=== PATIENT | male | born 1945 | race African-American/Black ===

== ENCOUNTER 2019-09-28 02:23 | Inpatient (IN) | payer OTHER ==
[~2019-09-28] VITALS: Ht 172.7 cm; Wt 45.6 kg
[2019-09-28] MEDS ORDERED: SODIUM CHLORIDE 0.9% 1,000 ML IV ONE (03:48)
[2019-09-28 04:26] LABS: INR 1.5; PROTHROMBIN TIME 15.7 sec (9.6-11.0)
[2019-09-28 04:26] LABS: CLARITY URINE CLEAR (CLEAR); COLOR URINE YELLOW (YELLOW); KETONES URINE NEGATIVE (NEGATIVE); LEUKOCYTE ESTERASE URINE NEGATIVE (NEGATIVE); NITRITE URINE NEGATIVE (NEGATIVE); OCCULT BLOOD URINE NEGATIVE (NEGATIVE); PH URINE 7.5 (4.5-8.0); PROTEIN URINE NEGATIVE (NEGATIVE); SPECIFIC GRAVITY URINE 1.012 (1.005-1.030); UROBILINOGEN URINE >=8.0 E.U./dL (0.2-1.0)
[2019-09-28 04:33] LABS: BASOPHILS % 0.8 % (0.0-2.0); EOSINOPHILS % 1.1 % (0.0-5.0); HEMOGLOBIN. 10.6 g/dL (14.0-18.0); LYMPHOCYTES % 43.8 % (20.0-50.0); MEAN CORPUSCULAR HEMOGLOBIN 27.3 pg (28.0-32.0); MEAN CORPUSCULAR VOLUME 82.1 fL (80.0-94.0); NEUTROPHILS % 41.3 % (40.0-76.0); RED BLOOD CELL COUNT 3.89 mill/uL (4.7-6.1); RED CELL DISTRIBUTION WIDTH 24.6 % (11.6-14.6)
[2019-09-28 04:36] LABS: CHLORIDE 105 mEq/L (98-107)
[2019-09-28 04:40] LABS: ETHANOL BLOOD < 10 mg/dL
[2019-09-28 04:45] LABS: CREATINE KINASE 285 IU/L (39-308)
[2019-09-28 04:47] LABS: METHADONE URINE SCREEN NEGATIVE (NEGATIVE); OPIATES URINE SCREEN NEGATIVE (NEGATIVE)
[2019-09-28 04:48] LABS: *AMPHETAMINES SCREEN URINE NEGATIVE (NEGATIVE); *BARBITURATES SCREEN URINE NEGATIVE (NEGATIVE); *BENZODIAZEPINES SCREEN URINE NEGATIVE (NEGATIVE); *COCAINE SCREEN URINE NEGATIVE (NEGATIVE); CANNABINOID URINE SCREEN NEGATIVE (NEGATIVE); PHENCYCLIDINE URINE SCREEN NEGATIVE (NEGATIVE)
[2019-09-28 05:05] LABS: MEAN PLATELET VOLUME 9.1 fl (7.4-10.4); PLATELET 44 x1000/uL (130-400)
[2019-09-28] MEDS ORDERED: GUAIFENESIN 200MG/10ML SUGAR FREE UDC PO PRN (07:30)
[2019-09-28] MEDS ORDERED: HYDROCODONE/ACETAMINOPHEN 10/325MG TABLET PO PRN (07:30)
[2019-09-28] MEDS ORDERED: DIPHENHYDRAMINE 50MG/ML VIAL IV PRN (07:30)
[2019-09-28] MEDS ORDERED: MAGNESIUM/ALUMINUM HYDROXIDE/SIMETHICONE 30ML UDC PO PRN (07:30)
[2019-09-28] MEDS ORDERED: IPRATROPIUM/ALBUTEROL 0.5-3(2.5)MG/3ML NEB HHN PRN (07:30)
[2019-09-28] MEDS ORDERED: ONDANSETRON HCL 4MG/2ML INJ IV PRN (07:30)
[2019-09-28] MEDS ORDERED: ACETAMINOPHEN 325MG TABLET PO PRN (07:30)
[2019-09-28] MEDS ORDERED: HYDRALAZINE 20MG/ML VIAL IV PRN (07:30)
[2019-09-28] MEDS ORDERED: CLONIDINE 0.1MG TABLET PO PRN (07:30)
[2019-09-28] MEDS ORDERED: DOCUSATE SODIUM 100MG CAPSULE PO PRN (07:30)
[2019-09-28] MEDS ORDERED: LORAZEPAM 2MG/ML CPJ IV PRN (07:30)
[2019-09-28] MEDS ORDERED: MORPHINE SULFATE 2 MG/ML CPJ (NOT FOR IM USE) IV PRN (07:30)
[2019-09-28 09:12] VITALS: BP 118/74
[2019-09-28] MEDS ORDERED: FURO-152 PO (11:24)
[2019-09-28 12:02] VITALS: BP 123/73
[2019-09-28 13:10] LABS: T4 FREE 1.31 ng/dL (0.76-1.46)
[2019-09-28] MEDS: FOLIC ACID 1MG TABLET PO SCH (13:26)
[2019-09-28] MEDS: THIAMINE HCL 100MG TABLET PO SCH (13:26)
[2019-09-28] MEDS: SODIUM CHLORIDE 0.9% INJ 3ML FLUSH IVF SCH ×2 (13:26→21:11)
[2019-09-28] MEDS: MULTIVITAMINS,THER W-MINERALS TABLET PO SCH (13:26)
[2019-09-28 15:10] LABS: FOLIC ACID (FOLATE) SERUM > 20.00 ng/mL (>5.38)
[2019-09-28 15:19] LABS: VITAMIN B12 SERUM 1853 pg/mL (211-911)
[2019-09-28 16:07] VITALS: BP 107/55
[2019-09-28 18:13] LABS: CREATINE KINASE 259 IU/L (39-308)
[2019-09-28 18:14] LABS: CREATINE KINASE MB FRACTION 3.2 ng/mL (0.5-3.6)
[2019-09-28 20:00] VITALS: BP 113/69
[2019-09-28 23:53] LABS: CREATINE KINASE 223 IU/L (39-308)
[2019-09-28 23:54] LABS: CREATINE KINASE MB FRACTION 2.7 ng/mL (0.5-3.6)
[2019-09-29 00:44] VITALS: BP 124/73
[2019-09-29 04:00] VITALS: BP 114/64
[2019-09-29] MEDS: SODIUM CHLORIDE 0.9% INJ 3ML FLUSH IVF SCH ×3 (05:50→21:46)
[2019-09-29 08:02] VITALS: BP 105/67
[2019-09-29] MEDS: THIAMINE HCL 100MG TABLET PO SCH ×2 (09:00→09:33)
[2019-09-29] MEDS: FOLIC ACID 1MG TABLET PO SCH ×2 (09:00→09:33)
[2019-09-29] MEDS: MULTIVITAMINS,THER W-MINERALS TABLET PO SCH ×2 (09:00→09:33)
[2019-09-29] MEDS: DEXT 5%/0.45% NACL 1000ML 1,000 ML IV SCH (12:31)
[2019-09-29 12:38] VITALS: BP 89/60
[2019-09-29 16:10] VITALS: BP 112/65
[2019-09-29 17:39] LABS: BASOPHILS % 0.7 % (0.0-2.0); HEMATOCRIT. 36.3 % (42.0-52.0); HEMOGLOBIN. 11.7 g/dL (14.0-18.0); LYMPHOCYTES % 46.9 % (20.0-50.0); MEAN CORPUSCULAR HEMOGLOBIN 26.5 pg (28.0-32.0); MONOCYTES % 12.3 % (2.0-8.0); NEUTROPHILS % 38.1 % (40.0-76.0); RED BLOOD CELL COUNT 4.42 mill/uL (4.7-6.1); RED CELL DISTRIBUTION WIDTH 24.3 % (11.6-14.6)
[2019-09-29 18:21] LABS: CHLORIDE 105 mEq/L (98-107)
[2019-09-29 18:26] LABS: TOTAL IRON BINDING CAPACITY 431 ug/dL (250-450)
[2019-09-29] MEDS ORDERED: IOHEXOL-300 100 ML BOTTLE ONE (18:44)
[2019-09-29] MEDS: LACTULOSE 20G/30ML UDC PO SCH ×2 (18:52→23:08)
[2019-09-29 20:40] VITALS: BP 112/73
[2019-09-29 22:34] LABS: PLATELET ESTIMATE MARKEDLY DECREASED
[2019-09-29 22:35] LABS: PLATELET 36 x1000/uL (130-400)
[2019-09-30 00:30] VITALS: BP 110/83
[2019-09-30 04:00] VITALS: BP 114/78
[2019-09-30] MEDS: LACTULOSE 20G/30ML UDC PO SCH ×4 (05:16→22:04)
[2019-09-30] MEDS: SODIUM CHLORIDE 0.9% INJ 3ML FLUSH IVF SCH ×3 (05:16→22:11)
[2019-09-30 08:02] VITALS: BP 114/64
[2019-09-30] MEDS: FOLIC ACID 1MG TABLET PO SCH (09:57)
[2019-09-30] MEDS: MULTIVITAMINS,THER W-MINERALS TABLET PO SCH (09:57)
[2019-09-30] MEDS: THIAMINE HCL 100MG TABLET PO SCH (09:58)
[2019-09-30 12:02] VITALS: BP 137/76
[2019-09-30] MEDS ORDERED: LEVOFLOXACIN 500MG PREMIX 100 ML IV SCH (13:00)
[2019-09-30] MEDS: DEXT 5%/0.45% NACL 1000ML 1,000 ML IV SCH (15:02)
[2019-09-30 16:04] VITALS: BP 110/58
[2019-09-30 20:20] VITALS: BP 106/62
[2019-10-01] VITALS (7 sets, daily range): BP systolic 99–106; BP diastolic 44–67
[2019-10-01] MEDS: DEXT 5%/0.45% NACL 1000ML 1,000 ML IV SCH (04:48)
[2019-10-01 05:10] LABS: HIV SCREEN 4G Non Reactive (Non Reactive)
[2019-10-01] MEDS: SODIUM CHLORIDE 0.9% INJ 3ML FLUSH IVF SCH ×2 (05:39→13:07)
[2019-10-01] MEDS: LACTULOSE 20G/30ML UDC PO SCH ×2 (06:02→13:07)
[2019-10-01 07:31] LABS: CHLORIDE 105 mEq/L (98-107)
[2019-10-01 07:48] LABS: HEMATOCRIT. 34.6 % (42.0-52.0); HEMOGLOBIN. 11.4 g/dL (14.0-18.0); MEAN CORPUSCULAR HEMOGLOBIN 26.7 pg (28.0-32.0); MEAN CORPUSCULAR VOLUME 80.9 fL (80.0-94.0); RED BLOOD CELL COUNT 4.28 mill/uL (4.7-6.1)
[2019-10-01] MEDS: MULTIVITAMINS,THER W-MINERALS TABLET PO SCH (09:54)
[2019-10-01] MEDS: FOLIC ACID 1MG TABLET PO SCH (09:54)
[2019-10-01] MEDS: THIAMINE HCL 100MG TABLET PO SCH (09:57)
[2019-10-01] MEDS ORDERED: LEVOFLOXACIN 250MG TABLET PO SCH (16:00)
[2019-10-01 17:15] LABS: MEAN PLATELET VOLUME 9.4 fl (7.4-10.4); PLATELET 54 x1000/uL (130-400)
[2019-10-01 17:17] LABS: PLATELET ESTIMATE MARKEDLY DECREASED
[2019-10-01 22:16] LABS: HEPATITIS B SURFACE ANTIGEN NEGATIVE
[2019-10-02 16:30] LABS: FERRITIN 51 ng/mL (22-322)
[2019-10-02 19:52] LABS: HEPATITIS A AB IGM NEGATIVE (NEGATIVE)
== END 2019-10-01 21:22 | disposition short-term general hospital (02) | DRG 432 ==
LOC: ER 02:58 → 6WST 05:31 → EDBEDREQ 05:34 → ENRESERV 08:29
PROVIDERS: ADMIT Internal Medicine; ATTEND Internal Medicine
PROC: 4A10X4Z Monitoring of Central Nervous Electrical Activity, External Approach (ICD-10-PCS; principal; 2019-09-30)
DX: K74.60 Unspecified cirrhosis of liver (principal); G92 Toxic encephalopathy; D68.9 Coagulation defect, unspecified; Z68.1 Body mass index [BMI] 19.9 or less, adult; E44.0 Moderate protein-calorie malnutrition; B19.20 Unspecified viral hepatitis C without hepatic coma; D63.8 Anemia in other chronic diseases classified elsewhere; R31.9 Hematuria, unspecified; D69.6 Thrombocytopenia, unspecified; K80.20 Calculus of gallbladder without cholecystitis without obstruction; R62.7 Adult failure to thrive; R16.1 Splenomegaly, not elsewhere classified
CPT/HCPCS: 36415; 70551; 71045; 74177; 76700; 80048; 80053; 80305; 80320; 81003; 82140; 82378; 82550; 82553; 82607; 82728; 82746; 83036; 83540; 83550; 83880; 84439; 84443; 84481; 84484; 85025; 86301; 86304; 86705; 86709; 86803; 87340; 87389; 92610; 93005; 93970; 99285; J1956; J2060; J7030; Q9967; G0480

== ENCOUNTER 2019-10-29 00:30 | Emergency (ER) | payer OTHER ==
[~2019-10-29] VITALS: Ht 188 cm; Wt 63.0 kg
[~2019-10-29 00:30] MED LIST: FURO-152 PO
[2019-10-29] MEDS ORDERED: SODIUM CHLORIDE 0.9% 1,000 ML IV ONE (01:01)
[2019-10-29 01:59] LABS: BASOPHILS % 0.5 % (0.0-2.0); EOSINOPHILS % 1.6 % (0.0-5.0); HEMATOCRIT. 31.2 % (42.0-52.0); HEMOGLOBIN. 10.2 g/dL (14.0-18.0); LYMPHOCYTES % 43.8 % (20.0-50.0); MEAN CORPUSCULAR HEMOGLOBIN 26.9 pg (28.0-32.0); MEAN PLATELET VOLUME 10.7 fl (7.4-10.4); MONOCYTES % 8.9 % (2.0-8.0); NEUTROPHILS % 45.2 % (40.0-76.0); PLATELET 54 x1000/uL (130-400)
[2019-10-29 02:12] LABS: CHLORIDE 116 mEq/L (98-107)
[2019-10-29 02:15] LABS: ETHANOL BLOOD < 10 mg/dL
[2019-10-29] MEDS: LACTULOSE 20G/30ML UDC PO ONE ×2 (03:00→05:25)
[2019-10-29 03:44] LABS: CLARITY URINE CLEAR (CLEAR); COLOR URINE YELLOW (YELLOW); KETONES URINE NEGATIVE (NEGATIVE); LEUKOCYTE ESTERASE URINE TRACE (NEGATIVE); NITRITE URINE NEGATIVE (NEGATIVE); OCCULT BLOOD URINE NEGATIVE (NEGATIVE); PH URINE 6.5 (4.5-8.0); PROTEIN URINE NEGATIVE (NEGATIVE); SPECIFIC GRAVITY URINE 1.025 (1.005-1.030)
[2019-10-29 04:01] LABS: *AMPHETAMINES SCREEN URINE NEGATIVE (NEGATIVE); *BARBITURATES SCREEN URINE NEGATIVE (NEGATIVE); *BENZODIAZEPINES SCREEN URINE NEGATIVE (NEGATIVE)
[2019-10-29 04:02] LABS: *COCAINE SCREEN URINE NEGATIVE (NEGATIVE); CANNABINOID URINE SCREEN NEGATIVE (NEGATIVE); METHADONE URINE SCREEN NEGATIVE (NEGATIVE); OPIATES URINE SCREEN NEGATIVE (NEGATIVE); PHENCYCLIDINE URINE SCREEN NEGATIVE (NEGATIVE)
[2019-10-29 05:07] VITALS: BP 104/63
== END 2019-10-29 05:31 | disposition short-term general hospital (02) ==
LOC: ER 00:30
DX: K72.90 Hepatic failure, unspecified without coma (principal); R41.82 Altered mental status, unspecified
CPT/HCPCS: 36415; 70450; 71045; 80053; 80305; 80307; 80320; 80329; 81003; 82140; 82962; 84484; 85025; 93005; 96360; 96361; 99285; J7030; G0480

== ENCOUNTER 2020-11-06 20:18 | Emergency (ER) | payer OTHER ==
[~2020-11-06] VITALS: Ht 175.3 cm; Wt 70.0 kg
[2020-11-06 23:03] LABS: CHLORIDE 113 mEq/L (98-107)
[2020-11-06 23:08] LABS: ETHANOL BLOOD < 10 mg/dL
[2020-11-06 23:12] LABS: CREATINE KINASE 491 IU/L (39-308)
[2020-11-06 23:33] LABS: BASOPHILS % 0.4 % (0.0-2.0); EOSINOPHILS % 3.6 % (0.0-5.0); HEMATOCRIT. 32.1 % (42.0-52.0); HEMOGLOBIN. 10.1 g/dL (14.0-18.0); MEAN CORPUSCULAR HEMOGLOBIN 27.3 pg (28.0-32.0); MEAN CORPUSCULAR VOLUME 86.3 fL (80.0-94.0); MEAN PLATELET VOLUME 9.1 fl (7.4-10.4); MONOCYTES % 13.8 % (2.0-8.0); NEUTROPHILS % 48.2 % (40.0-76.0); RED BLOOD CELL COUNT 3.72 mill/uL (4.7-6.1); RED CELL DISTRIBUTION WIDTH 23.2 % (11.6-14.6)
[2020-11-06 23:54] LABS: PLATELET 24 x1000/uL (130-400)
[2020-11-07] MEDS ORDERED: SODIUM CHLORIDE 0.9% 1,000 ML IV ONE (00:15)
[2020-11-07] MEDS ORDERED: CEFTRIAXONE 1 G PREMIX 50 ML IV ONE (00:15)
[2020-11-07] MEDS ORDERED: AZITHROMYCIN 500 MG in DEXT 5% WATER 250 ML IV SCH (00:15)
[2020-11-07] MEDS ORDERED: LACTULOSE 20G/30ML UDC PO ONE (00:45)
[2020-11-07 02:40] VITALS: BP 120/70
== END 2020-11-07 06:19 | disposition short-term general hospital (02) ==
LOC: ER 20:18
DX: J18.9 Pneumonia, unspecified organism (principal); E72.20 Disorder of urea cycle metabolism, unspecified; I10 Essential (primary) hypertension; Z20.822 Contact with and (suspected) exposure to COVID-19
CPT/HCPCS: 36415; 70450; 71045; 80053; 80307; 80320; 80329; 82140; 82550; 82962; 83605; 84443; 85025; 87426; 93005; 96365; 96366; 96368; 99285; J0456; J0696; J7030; J7060; G0480